=== PATIENT | male | born 1945 | race Caucasian/White ===

== ENCOUNTER 2017-05-23 14:52 | Emergency (ER) | payer MEDICARE, BC ==
[2017-05-23] MEDS ORDERED: OXYMETAZOLINE 0.05% NASAL 15 SPRAYS/15 ML BTL NASAL ONE (15:14)
--- NOTE | 2017-05-23 16:14 | ER PHYSICIAN DOCUMENTATION ---
Physician Documentation [facility] Name:Stoney Merino Age:71 yrs Sex:Male :1945 Arrival Date:05/23/2017 Time:14:52 Bed2 Private MD: Bennett Soliman Disposition: 05/23/17 16:00 Discharged to Home/Self Care. Impression: Nasal Laceration, Finger Laceration. - Condition is Good. - Discharge Instructions: FACIAL LACERATION suture tape - LACERATION, Face (suture or tape), FINGER LACERATION - LACERATION, Hand. - Medical Reconciliation form form. - Follow up: Private Physician; When: As needed; Reason: Continuance of care. - Problem is new. - Symptoms have improved. HPI: 05/23 16:17 This 71 yrs old Male presents to ER via Private Vehicle with complaints of jm Fall Injury, Hand Injury - LEFT. 16:17 Details of fall: The patient fell from an upright position, while walking. Onset: The jm symptom(s)/episode began/occurred 2 hour(s) ago. Associated injuries: The patient sustained injury to the head, contusion, laceration, 1 cm(s), of the nose, left hand, laceration. Associated signs and symptoms: Pertinent negatives: blurred vision, headache, nausea, vomiting, weakness, Loss of consciousness: the patient experienced no loss of consciousness. Severity of symptoms: in the emergency department the symptoms are unchanged. The patient has not experienced similar symptoms in the past. Pt tripped while hiking and fell. His glasses cut the bridge of his nose and he cut his hand bracing himself. No other injuries. . Historical: - Allergies: No known drug Allergies; - Home Meds: 1. Aspirin Oral 2. meloxicam oral 3. UNKNOWN BP MED - PMHx: Hypertension; BPH; RUPTURED DISC; URINARY FREQUENCY; - PSHx: None; - Tetanus: < 10 years. - Ebola Screening: : Patient negative for fever greater than or equal to 101.5 degrees Fahrenheit, and additional compatible Ebola Virus Disease symptoms. - Immunization history: Flu Vaccine >1 year. - Social history: Smoking status: Patient states was never smoker of tobacco. ROS: 16:18 ENT: Positive for injury or acute deformity, nose bleed. jm 16:18 Neck: Negative for injury or acute deformity, pain with movement. 16:18 MS/extremity: Positive for abrasion. 16:18 Skin: Positive for abrasion(s). Exam: 16:18 Constitutional: The patient appears alert, awake. 16:18 Eyes: Periorbital structures: appear normal, Pupils: equal, round, and reactive to light and accomodation, Extraocular movements: intact throughout. 16:18 ENT: Nose: External nose: laceration is present, approximately 1 cm(s), bridge of nose, Nasal septum: no septal hematoma appreciated, Turbinates: are normal, clotted blood, in both nares, Mouth: is normal. 16:18 Neck: C-spine: appears grossly normal, ROM/movement: is normal. 16:18 Musculoskeletal/extremity: Extremities: grossly normal except: noted in the dorsal aspect of proximal phalanx of left little finger: abrasion, laceration, ROM: intact in all extremities, Pulses: are normal with no appreciated deficits, Sensation intact. 16:18 Neuro: Mentation: is normal, Memory: is normal. Vital Signs: 15:03 BP 152 / 90; Pulse 58; Resp 17; Temp 98.6; Pulse Ox 94% on R/A; Weight 90.72 kg; Height rh 5 ft. 5 in. (165.10 cm); Pain 0/10; 15:03 Body Mass Index 33.28 (90.72 kg, 165.10 cm) rh Laceration: 16:18 Wound Repair of 1cm ( 0.4in ) subcutaneous laceration to bridge of nose. Distal jm neuro/vascular/tendon intact. Anesthesia: Wound infiltrated with 2 mls of 1% lidocaine. Wound prep: Wound irrigation by nurse. Skin closed with 2 5-0 Ethilon using Simple sutures. Dressed with Open to air. Patient tolerated well. 16:18 Wound Repair of 3cm ( 1.2in ) subcutaneous laceration to dorsal aspect of proximal jm phalanx of left little finger. Irregularly shaped.. Distal neuro/vascular/tendon intact. Anesthesia: Wound infiltrated with 3 mls of 1% lidocaine. Wound prep: Wound irrigation by nurse. Skin closed with 5 5-0 Ethilon using Interrupted sutures. Dressed with bandaid. Patient tolerated well. MDM: 14:57 Patient medically screened. 16:18 Differential diagnosis: fracture, laceration. Data reviewed: vital signs, nurses notes, jm and as a result, I will discharge patient. Counseling: I had a detailed discussion with the patient and/or guardian regarding: the historical points, exam findings, and any diagnostic results supporting the discharge/admit diagnosis, the need for outpatient follow up, with the patient's primary care provider. ED course: No indication for CToH. Lacs repaired w/o issue. . 05/23 15:04 Order name: Wound Care; Complete Time: 15:04 Dispensed Medications: No medications were administered Signatures: Bennett Johns MD MD jm Hofsess, Rachel
--- NOTE | 2017-05-23 16:14 | ER NURSING DOCUMENTATION ---
Nurse's Notes [facility] Name:Stoney Merino Age:71 yrs Sex:Male :1945 Arrival Date:05/23/2017 Time:14:52 Bed2 Private MD: Diagnosis:Nasal Laceration;Finger Laceration Presentation: 05/23 14:56 Acuity: CHERY 4 rh 15:11 Presenting complaint: Patient states: Fell walking down from a hike and hit face and l lp hand. Transition of care: Home. Notified ED Physician of Andreas Rider notified. 15:11 Method Of Arrival: Private Vehicle lp Triage Assessment: 15:01 General: Appears in no apparent distress, Behavior is cooperative. Pain: Complains of rh pain in left hand and nose. EENT: Oral mucosa is moist. Neuro: Level of Consciousness is awake, alert, obeys commands, Oriented to person, place, time, event. Cardiovascular: Capillary refill < 3 seconds Chest pain is denied. Respiratory: Airway is patent Respiratory effort is even, unlabored. GI: Denies nausea. : No deficits noted. Derm: Skin is intact, is healthy with good turgor, Skin is pink, warm & dry. Musculoskeletal: Circulation, motion, and sensation intact Range of motion intact in all extremities. Injury Description: Laceration sustained to nose was sustained less than 30 minutes ago. is bleeding a small amount Skin tear. Historical: - Allergies: No known drug Allergies; - Home Meds: 1. Aspirin Oral 2. meloxicam oral 3. UNKNOWN BP MED - PMHx: Hypertension; BPH; RUPTURED DISC; URINARY FREQUENCY; - PSHx: None; - Tetanus: < 10 years. - Ebola Screening: : Patient negative for fever greater than or equal to 101.5 degrees Fahrenheit, and additional compatible Ebola Virus Disease symptoms. - Immunization history: Flu Vaccine >1 year. - Social history: Smoking status: Patient states was never smoker of tobacco. Screenin:03 Infectious Disease Risk None. Abuse screen: Denies threats or abuse. Denies injuries rh from another. Nutritional screening: No deficits noted. Assessment: 15:03 See Triage Assessment done by same RN. rh Vital Signs: 15:03 BP 152 / 90; Pulse 58; Resp 17; Temp 98.6; Pulse Ox 94% on R/A; Weight 90.72 kg; Height rh 5 ft. 5 in. (165.10 cm); Pain 0/10; 15:03 Body Mass Index 33.28 (90.72 kg, 165.10 cm) ED Course: 14:55 Patient arrived in ED. 14:56 Triage completed. 14:57 Bennett Johns MD is Attending Physician. yanique 15:03 Notified ED Physician of patient's arrival and chief complaint. Dr. Johns notified. 15:03 Valuables Remains with patient Patient has correct armband on for positive rh identification. Bed in low position. Call light in reach. Side rails up X 1. 15:11 Irlanda Bella, RN is Primary Nurse. lp 15:12 Wound care to laceration located on nose was Irrigation Normal Saline. lp 15:12 Wound care. lp Administered Medications: No medications were administered Outcome: 16:00 Discharge ordered by . 16:13 Discharged to home ambulatory, with family. 16:13 Condition: improved 16:13 Discharge Assessment: Patient awake, alert and oriented x 3. No cognitive and/or functional deficits noted. Patient verbalized understanding of disposition instructions. 16:13 Discharge instructions given to patient, Instructed on discharge instructions, follow up and referral plans. Demonstrated understanding of instructions. 16:13 Patient left the ED. 05/24 15:54 Discharge F/U Call: Unable to reach: no answer 16:01 Discharge F/U Call: Spoke with: other: Name: friend and told him to let the pt know st to call us if he had any questions or concerns. Signatures: Cristy Shin RN RN st Pavlish, Lena, Bennett Zee RN, lp, MD MD jm Hofsess, Rachel Kyle Souza
== END 2017-05-23 16:14 | disposition home or self-care (01) ==
LOC: ER 14:52
DX: S01.21XA Laceration without foreign body of nose, initial encounter (principal); S61.217A Laceration without foreign body of left little finger without damage to nail, initial encounter; W01.0XXA Fall on same level from slipping, tripping and stumbling without subsequent striking against object, initial encounter; Y92.838 Other recreation area as the place of occurrence of the external cause; Y93.01 Activity, walking, marching and hiking; I10 Essential (primary) hypertension; Z79.899 Other long term (current) drug therapy
CPT/HCPCS: 12002; 12042; 12051; 99282; 99283